=== PATIENT | female | born 2000 | race Caucasian/White ===

== ENCOUNTER 2022-06-04 23:02 | Emergency (ER) | payer OTHER ==
[2022-06-04 23:09] VITALS: BP 115/65
--- NOTE | 2022-06-04 23:41 | ED Physician Documentation ---
PD HPI HEENT - Stated complaint Stated Complaint: SWOLLEN EYE - Chief complaint Chief Complaint: Heent - History obtained from History obtained from: Patient - History of Present Illness Timing - onset: How many days ago (5) Timing - duration: Days (5) Timing - details: Gradual onset, Still present Location: Other (left lateral eyebrow) Improves: No: Medication (seen in Clinic 2 days ago and Rx Bactrim abx without improvement. Seens worse/more painful.) Associated symptoms: No: Fever, Congestion Similar symptoms before: Has not had sx before Recently seen: Clinic Review of Systems Constitutional: denies: Fever, Chills Nose: denies: Rhinorrhea / runny nose, Congestion Throat: denies: Sore throat Respiratory: denies: Cough PD PAST MEDICAL HISTORY - Past Medical History Past Medical History: No - Past Surgical History Past Surgical History: No - Present Medications Home Medications: Ambulatory Orders Medication Instructions Recorded Confirmed Sulfamethox/Trimeth 800/160 PO BID 06/04/22 [Bactrim Ds] - Allergies Allergies/Adverse Reactions: Allergies Allergy/AdvReac Type Severity Reaction Status Date / Time No Known Drug Allergies Allergy Verified 06/04/22 23:15 - Social History Does the pt smoke?: No Smoking Status: Never smoker Does the pt drink ETOH?: No Does the pt have substance abuse?: No - Immunizations Immunizations are current?: Yes - POLST Patient has POLST: No PD ED PE NORMAL - Vitals Vital signs reviewed: Yes - General General: Alert and oriented X 3, No acute distress, Well developed/nourished - HEENT HEENT: PERRL, EOMI, Other (left lateral eyebrow with local area of swelling, tenderness and fluctuance, with redness c/w abscess. Small pointing at center but no drainage. ) Results - Vitals Vitals: Oxygen O2 Source Room air - Labs Labs: Microbiology 06/05/22 00:48 Wound Culture - Preliminary Face - Abscess Procedures - Abscess I&D (location) left eyebrow laterally Preparation: LET Incision: Incised with scalpel, Purulent drainage, Culture obtained Other: Pt tolerated well PD MEDICAL DECISION MAKING - ED course Complexity details: considered differential (looks like eyebrow sebaceous cyst with infection. Too high for eyelid/hordeolum. ), d/w patient Departure - Departure Disposition: 01 Home, Self Care Clinical Impression: Abscess, eyebrow Record reviewed to determine appropriate education?: Yes Instructions: ED Abscess IandD Comments: This should heal up much more promptly now that the pocket of infection is drained. You can use some warm moist towels to the area 2 or 3 times daily to help promote further drainage out. Continue the current self antibiotic that you are prescribed. Tylenol or ibuprofen if needed for pains. We did do a culture of the purulent material. This will result in a couple of days. We will call you if we need to change antibiotic choice based on that. Otherwise I would anticipate improvement of this over the next 2 to 3 days. The small incision will heal up on its own and should not leave scarring. Recheck if not improved well over the next few days and return if worsening. Discharge Date/Time: 06/05/22 00:54
[2022-06-05] MEDS ORDERED: LIDOCAINE-EPINEPH-TETRACAINE 3 ML SYRINGE TOP STA (00:01)
== END 2022-06-05 00:54 | disposition home or self-care (01) ==
LOC: ED 23:02
DX: L02.01 Cutaneous abscess of face (principal)
CPT/HCPCS: 10060; 87070; 87077; 87181; 87205